=== PATIENT | female | born 1950 | race Caucasian/White ===

== ENCOUNTER 2017-05-16 11:10 | Emergency (ER) | payer MEDICARE, BC ==
--- OUTSIDE RECORDS SUMMARY | 2017-05-16 11:27 | XMS REPORT | Continuity of Care Document ---
:1950 Demographics Address [address] [place] [address] Home Phone [phone] Preferred Language Unknown Marital Status Unknown Protestant Affiliation Unknown Race Unknown Ethnic Group Unknown Author Organization [facility] [place] [address] Care Team Providers Name Role Phone Unavailable Primary Care Provider Unavailable Source Comments This disclosure is being made pursuant to the [employer] program and maynot contain all information available regarding this patient.[facility] Active Allergies and Adverse Reactions Not on File Current Medications Be aware that medications may not be up to date as of this document. Alwaysverify current medications with the patient. Not on file Active Problems Not on file Social History Tobacco Use Types Packs/Day Years Used Date Never Assessed Plan of Care Health Maintenance Due Date Last Done Comments Retired-Pertussis Vaccine Adult 01/27/1968 Retired-Tetanus Vaccine Adult 01/27/1968 Mammogram 1989 Colonoscopy 1999 Well Adult Visit 1999 Zoster Vaccine 60+ 2009 Bone Density 2014 Retired-Pneumococcal 23 Vaccine-65+ yo 2014 Retired-INFLUENZA VACCINE 07/08/2015 Results from Last 3 Months Not on file
[2017-05-16 11:45] LABS: Mean Cell Volume 98.2 fl (78-100); Mean Corpuscular Hemoglobin 31.7 pg (27-31); Mean Corpuscular Hgb Conc 32.3 g/dl (32-36); Mean Platelet Volume 9.8 fl (6.0-9.5); Neutrophil # 14.9 K/mm3 (1.3-6.0); Neutrophil % 86.1 % (42-75.0); Platelet Count 405 K/mm3 (150-450); Red Blood Count 2.27 M/mm3 (4.2-5.4); Red Cell Distribution Width 15.2 % (11.5-14.0); White Blood Count 17.3 K/mm3 (4.0-10.5)
[2017-05-16 11:56] LABS: Hemoglobin 7.2 gm/dL (12.5-16.0)
[2017-05-16 11:57] LABS: Hematocrit 22.3 % (37.0-47.0)
[2017-05-16] MEDS ORDERED: PANTOPRAZOLE SODIUM 40 MG in NORMAL SALINE 100 ML IV ONE (12:07)
[2017-05-16] MEDS ORDERED: PANTOPRAZOLE SODIUM 40 MG/100 ML PIGGYBACK IV ONE (12:10)
[2017-05-16 12:11] LABS: Anion Gap 19.9 mmol/L (6.8-13.8); BUN/Creatinine Ratio 24.2 (9.0-21.6); Bilirubin, Total 11.3 mg/dL (0.0-1.1); Ca. Corrected For Albumin 10.4 mg/dL (8.4-10.2); Calcium * 9.1 mg/dL (7.9-10.9); Carbon Dioxide 18.9 mmol/L (24-32.6); Magnesium 1.3 mg/dL (1.2-2.8); Potassium 3.8 mmol/L (3.4-4.6); Total Protein 6.1 gm/dL (6.2-8.2)
--- NOTE | 2017-05-16 12:13 | ERNOTE ---
Abdominal HPI - General Chief Complaint: Abdominal Pain Time Seen by Provider: 05/16/17 11:21 Source: patient, family - Immun/Allergies/Home Medications Immunizatons: IMMUNIZATION HX Immunizations Up to Date Yes History of Influenza Vaccine No Hx Pneumococcal Vaccination No Allergies/Adverse Reactions: Allergies acetaminophen [From Vicodin] Allergy (Verified 05/16/17 11:30) Other chest pain codeine Allergy (Verified 05/16/17 11:30) hydrocodone [From Vicodin] Allergy (Verified 05/16/17 11:30) Other chest pain Home Medications: HOME MEDICATIONS Bupropion HCl [Wellbutrin Xl] 300 mg PO DAILY 05/19/15 [Last Taken Unknown] Carvedilol [Coreg] 12.5 mg PO BID 05/19/15 [Last Taken Unknown] Levothyroxine Sodium [Synthroid] 25 mcg PO DAILY 05/19/15 [Last Taken Unknown] Risperidone 2 mg PO DAILY 05/19/15 [Last Taken Unknown] Warfarin Sodium [Coumadin] 3 mg PO SUTUWEFRSA 05/19/15 [Last Taken Unknown] Warfarin Sodium [Coumadin] 4 mg PO MO 05/19/15 [Last Taken Unknown] Simvastatin [Zocor] 40 mg PO HS 06/18/16 [Last Taken Unknown] metFORMIN HCL [Glucophage] 1,000 mg PO BIDWM 12/23/16 [Last Taken Unknown] Cholecalciferol (Vitamin D3) [Vitamin D3] 1,000 unit PO DAILY 05/16/17 [Last Taken Unknown] - History of Present Illness Narrative: Patient presents with diffuse mild abdominal pain, however the main reason that she comes in is because the increasing jaundice that she has been experiencing over the last week to 10 days as well as yellowing of the eyes. Patient has a known pancreatic mass or it is unclear exactly the nature of or whether there is any spread to the liver as well. Timing: getting worse Quality: mild, moderate Activities at Onset: none Associated Symptoms: Present: other - Black stools Prior Abdominal Problems: Present: none Prior Treatment: Present: other - patient is being seen in the Coumadin clinic however her INR has continued to rise so her Coumadin has been stopped and they have started her on vitamin K which has not brought the INR down at all Review of Systems - Review of Systems Constitutional: Present: See HPI EYE: Present: other - scleral icterus ENT: Present: no symptoms reported Respiratory: Present: no symptoms reported Cardiology: Present: no symptoms reported Gastrointestinal/Abdominal: Present: no symptoms reported Genitourinary: Present: no symptoms reported Musculoskeletal: Present: no symptoms reported Skin: Present: change in color Neurological: Present: no symptoms reported Endocrine: Present: no symptoms reported Hematologic/Lymphatic: Present: no symptoms reported Psych: Present: no symptoms reported - Patient's Past Medical History Patient History - Medical: Anemia, Cataracts, Diabetes Type 2, Depression, Hypothyroidism, Other - pancreatic mass Patient History - Cardiac/Respiratory: Cardiomyopathy, Coronary Heart Disease, CVA/Stroke, Deep Vein Thrombosis, Hypertension Patient History - Surgical Procedures: Cataracts, Cholecystectomy, Colonoscopy, D & C, Gastric Bypass, T & A, Other Patient History - Other: None - Social History Smoking Status: Former smoker Have you smoked in the past 12 months: Yes - Immunizations Immunizations Up to Date: Yes Hx Pneumococcal Vaccination: No History of Influenza Vaccine: No Physical Exam - Physical Exam General Appearance: Present: wd/wn, alert, mild distress Eye Exam: Scleral icterus: bilateral Ears, Nose, Throat: Present: normal ENT inspection, H, normal pharynx Neck: Present: normal inspection, nontender Respiratory: Present: no respiratory distress, normal breath sounds, no accessory muscle use, chest nontender, lungs clear Cardiovascular/Chest: Present: regular rate, rhythm, no murmur, normal peripheral pulses Gastrointestinal/Abdominal: Present: normal bowel sounds, nondistended, soft, no organomegaly, tenderness - mild Rectal Exam: Present: black stool - heme positive, other - Black tarry stool Back Exam: Present: normal inspection, normal range of motion Extremity Exam: Present: normal inspection, non-tender, no edema, normal range of motion Neurological Exam: Present: alert, oriented, normal mood/affect Skin Exam: Present: warm/dry, jaundice Lymphatic Exam: Present: no adenopathy ED Progress - Results and Orders Patient's Lab Results:: I have reviewed the patient's lab results. - Vital Signs Patient's Vital Signs:: I have reviewed the patient's vital signs. 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 Patient was given 40 mg of Protonix IV and 1 L of fluid and her vital signs are fairly stable. I spoke with the [facility] and patient will be transferred there to the medical ICU under the care of Dr. Amanda Boyd and given the blood loss over the last 5 days and the elevation of her liver enzymes and INR and the fact that there is likely a GI bleed patient will be transferred there by ambulance in critical condition. Departure - Departure Clinical Impression: Acute renal insufficiency, Biliary obstruction Pancreatic cancer Qualifiers: Pancreatic malignancy location: unspecified Qualified Code(s): C25.9 - Malignant neoplasm of pancreas, unspecified GI bleed Qualifiers: GI bleed type/associated pathology: unspecified gastrointestinal hemorrhage type Qualified Code(s): K92.2 - Gastrointestinal hemorrhage, unspecified Liver failure, acute Qualifiers: Hepatic coma status: without hepatic coma Qualified Code(s): K72.00 - Acute and subacute hepatic failure without coma Disposition: [facility] Condition: Critical - Critical Care Total Time (mins): 55 Critical Care: Patient will require acute and intensive intervention at [facility]. She will require blood transfusions, acute GI consult for likely biliary stent and probable he will consult. Patient was given Protonix IV for the likely GI bleed and a liter of fluid to help maintain her blood pressures being stable.
[2017-05-16] MEDS ORDERED: fentaNYL CITRATE/PF 50 MCG/ML AMPUL IV ONE (12:25)
[2017-05-16] MEDS ORDERED: NORMAL SALINE 1,000 ML IV ONE (12:25)
[2017-05-16 13:09] LABS: Urine Bilirubin 6 mg/dl (NEGATIVE); Urine Blood 250 /ul (NEGATIVE); Urine Ketone 5 mg/dL (NEGATIVE); Urine Nitrite Negative (NEGATIVE); Urine Protein >=300 mg/dL (NEGATIVE); Urine Specific Gravity 1.025 SP.GR. (1.005-1.010); Urine Urobilinogen Normal (NORMAL); Urine pH 5.5 pH (5.0-7.0)
[2017-05-16] MEDS ORDERED: fentaNYL CITRATE/PF 50 MCG/ML AMPUL ONE (13:12)
[2017-05-16 13:18] LABS: Urine Appearance Turbid; Urine Color Dark Yellow; Urine WBC 0-5 /hpf (0-5)
[2017-05-16 13:19] LABS: Urine Bacteria TRACE; Urine RBC >50 /hpf (0-5)
[2017-05-16 14:29] VITALS: BP 123/50
== END 2017-05-16 13:05 | disposition short-term general hospital (02) ==
LOC: ER 11:10
DX: N28.9 Disorder of kidney and ureter, unspecified (principal); C25.9 Malignant neoplasm of pancreas, unspecified; K92.2 Gastrointestinal hemorrhage, unspecified; K72.00 Acute and subacute hepatic failure without coma; E03.9 Hypothyroidism, unspecified; E11.9 Type 2 diabetes mellitus without complications; F32.9 Major depressive disorder, single episode, unspecified; Z72.0 Tobacco use

== ENCOUNTER 2017-08-05 12:45 | Inpatient (IN) | payer BC, MEDICARE ==
[2017-08-05] MEDS ORDERED: NORMAL SALINE 1,000 ML IV ONE ×2 (13:00→14:36)
--- NOTE | 2017-08-05 13:11 | ERNOTE ---
Medical Problem HPI - General Chief Complaint: General Assessment Time Seen by Provider: 08/05/17 12:55 Source: patient Exam Limitations: no limitations - Immun/Allergies/Home Medications Immunizations: IMMUNIZATION HX Immunizations Up to Date Yes History of Influenza Vaccine No Hx Pneumococcal Vaccination No Allergies/Adverse Reactions: Allergies acetaminophen [From Vicodin] Allergy (Verified 08/05/17 12:52) Other chest pain codeine Allergy (Verified 08/05/17 12:52) hydrocodone [From Vicodin] Allergy (Verified 08/05/17 12:52) Other chest pain Home Medications: HOME MEDICATIONS Bupropion HCl [Wellbutrin Xl] 300 mg PO DAILY 05/19/15 [Last Taken Unknown] Carvedilol [Coreg] 12.5 mg PO BID 05/19/15 [Last Taken Unknown] Levothyroxine Sodium [Synthroid] 25 mcg PO DAILY 05/19/15 [Last Taken Unknown] metFORMIN HCL [Glucophage] 1,000 mg PO BIDWM 12/23/16 [Last Taken Unknown] Cholecalciferol (Vitamin D3) [Vitamin D3] 1,000 unit PO DAILY 05/16/17 [Last Taken Unknown] Atorvastatin Calcium [Lipitor] 40 mg PO HS 08/05/17 [Last Taken Unknown] HYDROmorphone HCL [Dilaudid] 2 mg PO QID PRN 08/05/17 [Last Taken Unknown] - History of Present History Narrative: This is a patient with a known history of pancreatic cancer who does not feel hungry and called her oncologist and stated her symptoms and was subsequently sent to our emergency room for extreme weakness and fatigue. She denies any fevers chills dysuria cough congestion. She denies severe abdominal pains at this time. She states that she is receiving chemotherapy for pancreatitis. Review of Systems - Review of Systems Constitutional: Present: weakness, fatigue, malaise, weight loss EYE: Present: no symptoms reported ENT: Present: no symptoms reported Respiratory: Present: no symptoms reported Cardiology: Present: no symptoms reported Gastrointestinal/Abdominal: Present: See HPI - other than a significant history of anorexia and lack of desire to eat this patient has no other gastrointestinal symptoms at this time.. Absent: abdominal pain Genitourinary: Present: no symptoms reported Musculoskeletal: Present: no symptoms reported Skin: Present: no symptoms reported - Patient's Past Medical History Patient History - Medical: Anemia, Cataracts, Diabetes Type 2, Depression, Hypothyroidism, Other Patient History - Cardiac/Respiratory: Cardiomyopathy, Coronary Heart Disease, CVA/Stroke, Deep Vein Thrombosis, Hypertension Patient History - Surgical Procedures: Cataracts, Cholecystectomy, Colonoscopy, D & C, Gastric Bypass, T & A, Other Patient History - Other: None - Social History Living Situations: home Alcohol Use: none Drug Use: none - Immunizations Immunizations Up to Date: Yes Hx Pneumococcal Vaccination: No History of Influenza Vaccine: No Physical Exam - Physical Exam General Appearance: Present: other - this is a very pale-appearing cachectic weak appearing tired female who appears malnourished Head Exam: Present: normal inspection Eye Exam: Normal inspection: bilateral, PERRL: bilateral, EOMI: bilateral Ears, Nose, Throat: Present: normal ENT inspection Neck: Present: normal inspection Respiratory: Present: no respiratory distress, normal breath sounds, no accessory muscle use - port is noted in the right upper anterior chest wall region site does not appear infected., chest nontender, lungs clear Cardiovascular/Chest: Present: regular rate, rhythm, no murmur, normal peripheral pulses Gastrointestinal/Abdominal: Present: normal bowel sounds, nontender, nondistended Back Exam: Present: normal inspection, no vertebral tenderness Extremity Exam: Present: normal inspection, normal range of motion Neurological Exam: Present: alert, oriented, normal mood/affect ED Progress - Results and Orders Patient's Lab Results:: I have reviewed the patient's lab results. - Vital Signs Patient's Vital Signs:: I have reviewed the patient's vital signs. Vital Signs: Vital Signs 08/05/17 12:48 Temperature 36.7 C Pulse Rate 122 H Respiratory 14 Rate Blood Pressure 83/44 O2 Sat by Pulse 98 Oximetry - Progress/Reassessment Chief Complaint: General Assessment Plan - Plan Plan: Patient is in fact very weak and cachectic. After IV fluids and replacement of her potassium her potassium is still low at 2.5. Also her urine reveals that she has a urinary tract infection. At this time Dr. Jimenez was consulted in regards to admitting this patient for weakness and hypokalemia and UTI. Departure Clinical Impression: Hypokalemia, Weakness - Departure Disposition: [facility] Condition: Serious Referrals: Phoebe Holly MD [Primary Care Provider] -
[2017-08-05 13:13] LABS: Hematocrit 27.7 % (37.0-47.0); Hemoglobin 9.7 gm/dL (12.5-16.0); Mean Cell Volume 86.3 fl (78-100); Mean Corpuscular Hemoglobin 30.2 pg (27-31); Mean Platelet Volume 9.9 fl (6.0-9.5); Platelet Count 109 K/mm3 (150-450); Red Blood Count 3.21 M/mm3 (4.2-5.4); Red Cell Distribution Width 15.2 % (11.5-14.0); White Blood Count 4.1 K/mm3 (4.0-10.5)
[2017-08-05 13:18] LABS: Total Cells Counted 100
[2017-08-05 13:32] LABS: Albumin * 1.7 gm/dl (3.4-5.0); BUN/Creatinine Ratio 10.3 (9.0-21.6); Bilirubin, Total 0.4 mg/dL (0.0-1.1); Ca. Corrected For Albumin 9.5 mg/dL (8.4-10.2); Carbon Dioxide 23.3 mmol/L (24-32.6); Total Protein 4.9 gm/dL (6.2-8.2)
[2017-08-05 13:39] LABS: Potassium 2.3 mmol/L (3.4-4.6)
[2017-08-05 13:40] LABS: Band 5 % (0-2.0); Lymphocyte 30 % (20-51); Monocyte 7 % (0-9); Neutrophil 58 % (42-75); Neutrophil # 2.4 K/mm3 (1.3-6.0); Platelet Estimate Normal (NORMAL); RBC Morphology D (NORMAL)
[2017-08-05] MEDS ORDERED: POTASSIUM CHLORIDE 100 ML IV ONE (13:44)
[2017-08-05] MEDS ORDERED: POTASSIUM CHLORIDE 20 MEQ TABLET.SA PO ONE (13:44)
[2017-08-05] MEDS ORDERED: POTASSIUM CHLORIDE 20 MEQ TABLET.SA ONE (13:57)
[2017-08-05] MEDS ORDERED: ONDANSETRON HCL/PF 2 MG/ML VIAL IV ONE (14:37)
[2017-08-05 14:40] LABS: Urine Bilirubin Negative (NEGATIVE); Urine Blood 250 /ul (NEGATIVE); Urine Ketone Negative (NEGATIVE); Urine Nitrite Negative (NEGATIVE); Urine Protein 15 mg/dL (NEGATIVE); Urine Specific Gravity <=1.005 SP.GR. (1.005-1.010); Urine Urobilinogen Normal (NORMAL); Urine pH 6.5 pH (5.0-7.0)
[2017-08-05] MEDS ORDERED: HYDROmorphone HCL 1 MG/ML DISP.SYRIN IV ONE (14:43)
[2017-08-05] MEDS ORDERED: HYDROmorphone HCL 2 MG/ML VIAL ONE (14:46)
[2017-08-05 14:48] LABS: Urine Appearance Clear; Urine Bacteria 1+; Urine Color Yellow
[2017-08-05] MEDS ORDERED: ONDANSETRON HCL/PF 2 MG/ML VIAL ONE (14:52)
[2017-08-05] MEDS ORDERED: SULFAMETHOXAZOLE/TRIMETHOPRIM 1 TAB TABLET PO ONE (15:22)
[2017-08-05] MEDS ORDERED: SULFAMETHOXAZOLE/TRIMETHOPRIM 1 TAB TABLET ONE (15:23)
--- NOTE | 2017-08-05 17:32 | HP ---
Chief Complaint - Chief Complaint Date of Service: 08/05/17 Time of Service: 17:21 Chief Complaint: generalized weakness/decreased appetite History of Present Illness: Shayna Curtis, is a 67-year-old white female, patient of Dr. Holly, with previous medical history of pancreatic adenocarcinoma on chemotherapy, coronary artery disease, hypertension, hypothyroidism who was admitted on 08/05/2017 because of generalized weakness and decreased appetite. The patient was diagnosed with adenocarcinoma of the pancreas, nonresectable, in May 2017. Since then she has been on chemotherapy 3 weeks in a row and one week off. Her last one was one week and a half ago . She has been getting weaker and her legs could not bear her weight to make her walk. Her appetite is way down and so she went to our emergency room. In the emergency room she was found to be hypokalemic with a potassium of 2.3 with low total protein and albumin. She was then admitted for IV fluids and further correction of her potassium as it only got up to 2.5. - Patient's Past Medical History Patient History - Medical: Anemia, Cataracts, Chronic Pain, Diabetes Type 2, Depression, Hypothyroidism, Other Patient History - Cardiac/Respiratory: Cardiomyopathy, Coronary Heart Disease, CVA/Stroke, Deep Vein Thrombosis, Hypertension Patient History - Surgical Procedures: Cataracts, Cholecystectomy, Colonoscopy, D & C, Gastric Bypass, T & A, Other Patient History - Other: None - Social History Living Situations: alone Abuse History: No History of abuse Psych History: Hx of Depression Smoking Status: Former smoker Have you smoked in the past 12 months: Yes Do you dip or chew tobacco: No Smoking Start Date: 04/07/17 Patient requests Smoking Cessation Consult: No Initiate information on Smoking Cessation: No Alcohol Use: none Drug Use: none - Immunizations Immunizations Up to Date: Yes Hx Pneumococcal Vaccination: No History of Influenza Vaccine: No Review Of Systems (GEN) - Review of Systems Generalized/Overall Review: Present: Weakness, Weight loss. Absent: Chills, Fever EENTM: Present: No Symptoms Reported Respiratory: Absent: Cough, Shortness of Breath Cardiac: Absent: Chest Pain, Palpitations Abdominal: Present: Abdominal Pain. Absent: Nausea, Vomiting Genitourinary: Absent: Urgency, Frequency Musculoskeletal: Present: Joint Pain Immunizations: IMMUNIZATION HX Immunizations Up to Date Yes History of Influenza Vaccine No Hx Pneumococcal Vaccination No Allergies/Adverse Reactions: Allergies Allergy/AdvReac Type Severity Reaction Status Date / Time acetaminophen [From Vicodin] Allergy Other Verified 08/05/17 12:52 codeine Allergy Verified 08/05/17 12:52 hydrocodone [From Vicodin] Allergy Other Verified 08/05/17 12:52 Home Medications: HOME MEDICATIONS HYDROmorphone HCL [Dilaudid] 2 mg PO QID PRN 08/05/17 [Last Taken Unknown] Exam - Exam Vital Signs: Vital Signs - Last Taken Temp 36.8 C 08/05/17 16:45 Pulse 107 H 08/05/17 16:45 Resp 20 08/05/17 16:45 BP 104/62 08/05/17 16:45 Pulse Ox 98 08/05/17 16:45 Constitutional: Present: Alert, Oriented x3, Cooperative, Thin and frail ENT Exam: Present: hearing grossly normal Eye Exam: bilateral eye: normal inspection, PERRL, EOMI Neck: Present: supple Breasts: Present: Exam deferred Respiratory: Present: decreased breath sounds, No rales, No wheezing Cardiovascular/Chest: Present: regular rate, rhythm, no JVD, no murmur Abdomen: Present: Normal bowel sounds, soft, tender - slightly, distended - slightly Extremity: Present: no pedal edema, no calf tenderness Diagnostic Studies: Laboratory Results WBC 4.1 K/mm3 (4.0-10.5) 08/05/17 09:29 RBC 3.21 M/mm3 (4.2-5.4) L 08/05/17 09:29 Hgb 9.7 gm/dL (12.5-16.0) L 08/05/17 09:29 Hct 27.7 % (37.0-47.0) L 08/05/17 09:29 MCV 86.3 fl (78-100) 08/05/17 09:29 MCH 30.2 pg (27-31) 08/05/17 09:29 MCHC 35.0 g/dl (32-36) 08/05/17 09:29 RDW 15.2 % (11.5-14.0) H 08/05/17 09:29 Plt Count 109 K/mm3 (150-450) L 08/05/17 09:29 MPV 9.9 fl (6.0-9.5) H 08/05/17 09:29 Neutrophils % (Manual) 58 % (42-75) 08/05/17 09:29 Band Neuts % (Manual) 5 % (0-2.0) H 08/05/17 09:29 Lymphocytes % (Manual) 30 % (20-51) 08/05/17 09:29 Monocytes % (Manual) 7 % (0-9) 08/05/17 09:29 Neutrophils # (Manual) 2.4 K/mm3 (1.3-6.0) 08/05/17 09:29 Lymphocytes # (Manual) 1.2 k/mm3 (1.5-3.5) L 08/05/17 09:29 Monocytes # (Manual) 0.3 k/mm3 (0.0-1.0) 08/05/17 09: Nucleated RBCs 5.0 % (0-1) H 08/05/17 09:29 Platelet Estimate Normal (NORMAL) 08/05/17 09:29 RBC Morphology D (NORMAL) 08/05/17 09:29 Sodium 134 mmol/L (132-142) 08/05/17 09:29 Plasma Sodium 135 mmol/L (130-142) 08/05/17 09:29 Potassium 2.5 mmol/L (3.4-4.6) L 08/05/17 15:30 Chloride 98 mmol/L (97-106) 08/05/17 09: Carbon Dioxide 23.3 mmol/L (24-32.6) L 08/05/17 09:29 Anion Gap 15.0 mmol/L (6.8-13.8) H 08/05/17 09:29 BUN 9 mg/dL (3-23) 08/05/17 09:29 Creatinine 0.87 mg/dL (0.4-1.4) 08/05/17 09:29 Est GFR (Non-Af Amer) 69 mL/min (60-130) 08/05/17 09: BUN/Creatinine Ratio 10.3 (9.0-21.6) 08/05/17 09:29 Random Glucose 152 mg/dL (70-110) H 08/05/17 09:29 Calcium 8.0 mg/dL (7.9-10.9) 08/05/17 09:29 Calcium Adj for Albumin 9.5 mg/dL (8.4-10.2) 08/05/17 09: Total Bilirubin 0.4 mg/dL (0.0-1.1) 08/05/17 09:29 AST 42 U/L (0-48) 08/05/17 09:29 ALT 37 U/L (19-67) 08/05/17 09:29 Alkaline Phosphatase 218 U/L (50-170) H 08/05/17 09:29 Total Protein 4.9 gm/dL (6.2-8.2) L 08/05/17 09:29 Albumin 1.7 gm/dl (3.4-5.0) L 08/05/17 09:29 Urine Color Yellow 08/05/17 14:31 Urine Appearance Clear 08/05/17 14:31 Urine pH 6.5 pH (5.0-7.0) 08/05/17 14:31 Ur Specific [place] <=1.005 SP.GR. (1.005-1.010) 08/05/17 14:31 Urine Protein 15 mg/dL (NEGATIVE) H 08/05/17 14:31 Urine Glucose (UA) Negative mg/dL (NEGATIVE) 08/05/17 14:31 Urine Ketones Negative mg/dL (NEGATIVE) 08/05/17 14:31 Urine Blood 250 /ul (NEGATIVE) H 08/05/17 14:31 Urine Nitrate Negative (NEGATIVE) 08/05/17 14:31 Urine Bilirubin Negative mg/dl (NEGATIVE) 08/05/17 14:31 Prot Sulfosalicylic Acd Negative mg/dL (0) 08/05/17 14:31 Urine Urobilinogen Normal EU/dl (NORMAL) 08/05/17 14:31 Ur Leukocyte Esterase 75 /ul (NEGATIVE) H 08/05/17 14:31 Urine RBC 10-25 /hpf (0-5) H 08/05/17 14:31 Urine WBC 5-10 /hpf (0-5) H 08/05/17 14:31 Ur Epithelial Cells 0-5 /hpf (0-5) 08/05/17 14:31 Urine Bacteria 1+ (NONE) H 08/05/17 14:31 Urine Culture Comments Culture to follow 08/05/17 14:31 Assessment/Plan - Assessment/Plan (1) Hypokalemia Assessment: will replenish. Problem: Acute (2) Weakness Assessment: will start remeron for its beneficial effect of increasing her appetite and for its antidepressant property. she does not want to be on megace. will refer to PT. Problem: Acute (3) UTI (urinary tract infection) Assessment: will start her on IV rocephin. await C & S. Problem: Acute (4) Pancreatic cancer Problem: Acute (5) Coronary artery disease Problem: Chronic (6) Hypertension Problem: Acute (7) Hypothyroidism Problem: Acute (8) Diabetes mellitus type 2 in nonobese Problem: Acute
[2017-08-05] MEDS ORDERED: POTASSIUM CHLORIDE 10 MEQ TABLET.SA PO ONE (17:34)
[2017-08-05] MEDS ORDERED: ZOLPIDEM TARTRATE 5 MG TABLET PO PRN (17:43)
[2017-08-05] MEDS: POTASSIUM CHLORIDE 20 MEQ in NORMAL SALINE 1,000 ML IV SCH (18:00)
[2017-08-05] MEDS: POTASSIUM CHLORIDE 100 ML IV SCH ×2 (18:02→19:11)
[2017-08-05] MEDS: HYDROmorphone HCL 2 MG TABLET PO PRN (18:03)
[2017-08-05] MEDS ORDERED: MIRTAZAPINE 15 MG TABLET PO SCH (21:00)
[2017-08-06 05:36] LABS: Hematocrit 25.8 % (37.0-47.0); Hemoglobin 8.9 gm/dL (12.5-16.0); Mean Cell Volume 87.8 fl (78-100); Mean Corpuscular Hemoglobin 30.3 pg (27-31); Mean Corpuscular Hgb Conc 34.5 g/dl (32-36); Mean Platelet Volume 9.6 fl (6.0-9.5); Platelet Count 105 K/mm3 (150-450); Red Blood Count 2.94 M/mm3 (4.2-5.4); Red Cell Distribution Width 15.8 % (11.5-14.0); White Blood Count 6.1 K/mm3 (4.0-10.5)
[2017-08-06 05:38] LABS: Total Cells Counted 100
[2017-08-06 05:46] LABS: Atypical (Reactive) Lymph 1 % (0-2); Band 1 % (0-2.0); Immature Granulocyte 3 (0-1); Lymphocyte 33 % (20-51); Monocyte 6 % (0-9); Neutrophil 56 % (42-75); Neutrophil # 3.4 K/mm3 (1.3-6.0); Platelet Estimate Decreased (NORMAL)
[2017-08-06 05:47] LABS: RBC Morphology Normal (NORMAL)
[2017-08-06 05:51] LABS: Albumin * 1.6 gm/dl (3.4-5.0); Anion Gap 12.6 mmol/L (6.8-13.8); BUN/Creatinine Ratio 12.7 (9.0-21.6); Bilirubin, Total 0.3 mg/dL (0.0-1.1); Ca. Corrected For Albumin 9.1 mg/dL (8.4-10.2); Calcium * 7.5 mg/dL (7.9-10.9); Carbon Dioxide 21.4 mmol/L (24-32.6); Total Protein 4.5 gm/dL (6.2-8.2)
[2017-08-06] MEDS: HYDROmorphone HCL 2 MG TABLET PO PRN ×2 (06:37→15:43)
[2017-08-06] MEDS: POTASSIUM CHLORIDE 20 MEQ in NORMAL SALINE 1,000 ML IV SCH ×3 (06:39→15:54)
[2017-08-06] MEDS ORDERED: POTASSIUM CHLORIDE 20 MEQ TABLET.SA PO ONE (07:10)
--- NOTE | 2017-08-06 07:34 | PN ---
Subjective - Date and Time Seen Date: 08/06/17 Time: 07:30 Subjective Narrative: patient seen today in bed AOX 3 no acute distress, pt stated she was still feeling weak. She anticipating discharge home later today when potassium improves. Objective - Review of Systems Generalized/Overall Review: Reports: Weakness EENTM: Reports: No Symptoms Reported Respiratory: Reports: No Symptoms Reported Cardiac: Reports: No Symptoms Reported Abdominal: Reports: No Symptoms Reported Genitourinary Symptoms: Reports: No Symptoms Reported Musculoskeletal Complaints: Reports: No Symptoms Reported Neurological: Reports: Weakness Skin: Reports: No Symptoms Reported Endocrine: Reports: No Symptoms Reported - Vitals Vitals: Last Vital Signs Temp 36.5 C 08/06/17 00:00 Pulse 108 H 08/06/17 05:00 Resp 18 08/06/17 00:00 BP 115/46 08/06/17 00:00 Pulse Ox 95 08/06/17 00:00 - Abnormal Lab Findings Abnormal Lab Findings: Abnormal Lab Results 08/06/17 08/06/17 Range/Units 05:32 05:32 RBC 2.94 L (4.2-5.4) M/mm3 Hgb 8.9 L (12.5-16.0) gm/dL Hct 25.8 L (37.0-47.0) % RDW 15.8 H (11.5-14.0) % Plt Count 105 L (150-450) K/mm3 MPV 9.6 H (6.0-9.5) fl Immature Granulocytes 3 H (0-1) Nucleated RBCs 6.0 H (0-1) % Platelet Estimate Decreased L (NORMAL) Potassium 3.0 L (3.4-4.6) mmol/L Carbon Dioxide 21.4 L (24-32.6) mmol/L Calcium 7.5 L (7.9-10.9) mg/dL Alkaline Phosphatase 209 H (50-170) U/L Total Protein 4.5 L (6.2-8.2) gm/dL Albumin 1.6 L (3.4-5.0) gm/dl - Exam Constitutional: Present: Alert, Oriented x3, Cooperative ENT Exam: Present: hearing grossly normal Neck: Present: full range of motion Breasts: Present: Exam deferred Respiratory: Present: chest non-tender, lungs clear, normal breath sounds, no respiratory distress Cardiovascular/Chest: Present: normal peripheral pulses, regular rate, rhythm, no chest tenderness, no edema Abdomen: Present: Normal bowel sounds, soft, nontender, distended - slightly /Rectal: Present: Exam deferred Extremity: Present: normal range of motion, non-tender, normal inspection, no pedal edema Skin Exam: Present: other - pale Neurologic: Present: oriented x 3 Appearance: Present: appropriate appearance, appropriate insight Eye contact: Present: cooperative, good eye contact Thoughts: Present: normal thought pattern Assessment/Plan Plan Narrative: Hypokalemia-gradually improving Additional dose K-dur 40meq given today Continue with IVF Monitor Potassium level at noon Weakness Remeron added to treatment regimen UTI Seen on UA Continue with rocephin urine culture pending Code status: DNR VTE ppx: Ambulate and SCD GI ppx:Pepcid Time 20 minutes - Problems/Diagnosis (1) Hypokalemia Problem: Acute (2) Diabetes mellitus type 2 in nonobese Problem: Chronic (3) Weakness Problem: Acute (4) Pancreatic cancer Problem: Chronic (5) Hypothyroidism Problem: Acute (6) UTI (urinary tract infection) Problem: Acute (7) Coronary artery disease Problem: Chronic
[2017-08-06] MEDS: FAMOTIDINE 20 MG TABLET PO SCH (07:59)
[2017-08-06] MEDS ORDERED: POTASSIUM CHLORIDE 10 MEQ TABLET.SA PO SCH (09:00)
[2017-08-06] MEDS: ENOXAPARIN SODIUM 40 MG/0.4 ML SYRG SC SCH (10:18)
[2017-08-06] MEDS: POTASSIUM CHLORIDE 40 MEQ/15 ML BTL PO SCH ×3 (13:25→17:50)
[2017-08-07] MEDS: HYDROmorphone HCL 2 MG TABLET PO PRN ×4 (01:07→20:28)
[2017-08-07] MEDS: POTASSIUM CHLORIDE 20 MEQ in NORMAL SALINE 1,000 ML IV SCH ×2 (03:02→10:36)
[2017-08-07] MEDS: FAMOTIDINE 20 MG TABLET PO SCH (09:04)
[2017-08-07] MEDS: POTASSIUM CHLORIDE 40 MEQ/15 ML BTL PO SCH (09:05)
[2017-08-07] MEDS: ENOXAPARIN SODIUM 40 MG/0.4 ML SYRG SC SCH (09:13)
[2017-08-07] MEDS ORDERED: ONDANSETRON HCL/PF 2 MG/ML VIAL IV PRN (09:38)
--- NOTE | 2017-08-07 09:38 | PN ---
Subjective - Date and Time Seen Date: 08/07/17 Time: 09:34 Subjective Narrative: She says her appetitie is back. She is nauseous after taking her Potassium. Possible discharge in a.m, if K holds. no episode of diarrhea. Objective - Review of Systems Generalized/Overall Review: Reports: Weakness. Denies: Chills, Fever EENTM: Reports: No Symptoms Reported Respiratory: Denies: Cough, Shortness of Breath Cardiac: Denies: Chest Pain, Edema, Palpitations Abdominal: Reports: Nausea. Denies: Vomiting Genitourinary Symptoms: Denies: Urgency, Frequency Musculoskeletal Complaints: Reports: Joint Pain - Vitals Vitals: Last Vital Signs Temp 36.6 C 08/07/17 06:00 Pulse 101 H 08/07/17 06:00 Resp 18 08/07/17 06:00 BP 109/52 08/07/17 06:00 Pulse Ox 99 08/07/17 06:00 - Exam Constitutional: Present: Alert, Oriented x3, Cooperative ENT Exam: Present: hearing grossly normal Neck: Present: supple Breasts: Present: Exam deferred Respiratory: Present: normal breath sounds, No rales, No wheezing Cardiovascular/Chest: Present: regular rate, rhythm, no JVD, no murmur Abdomen: Present: Normal bowel sounds, soft, nontender, nondistended Extremity: Present: no pedal edema, no calf tenderness Assessment/Plan - Problems/Diagnosis (1) Hypokalemia Problem: Acute Narrative: franca repeat her BMP today. (2) Weakness Problem: Acute Narrative: PT consulted. appetitie increased. (3) UTI (urinary tract infection) Problem: Acute Narrative: with Klebsiella Oxytoca/Pneumoniae. (4) Pancreatic cancer Problem: Chronic (5) Coronary artery disease Problem: Chronic (6) Hypertension Problem: Acute (7) Hypothyroidism Problem: Acute (8) Diabetes mellitus type 2 in nonobese Problem: Chronic (9) Nausea Problem: Acute Narrative: russell Hayes
[2017-08-07 09:49] LABS: Anion Gap 14.9 mmol/L (6.8-13.8); BUN/Creatinine Ratio 11.5 (9.0-21.6); Calcium * 7.6 mg/dL (7.9-10.9); Carbon Dioxide 20.1 mmol/L (24-32.6); Estimated Creat Clear 63.4
[2017-08-07] MEDS: NORMAL SALINE 1,000 ML IV PRN ×2 (17:23→22:52)
[2017-08-08] MEDS: HYDROmorphone HCL 2 MG TABLET PO PRN ×2 (04:06→11:03)
[2017-08-08 08:09] LABS: Anion Gap 10.9 mmol/L (6.8-13.8); BUN/Creatinine Ratio 10.7 (9.0-21.6); Calcium * 7.2 mg/dL (7.9-10.9); Carbon Dioxide 21.4 mmol/L (24-32.6); Estimated Creat Clear 69.1; Potassium 4.3 mmol/L (3.4-4.6)
[2017-08-08] MEDS: FAMOTIDINE 20 MG TABLET PO SCH (08:09)
--- NOTE | 2017-08-08 08:57 | DS ---
(1) Hypokalemia Problem: Resolved (2) Weakness Problem: Resolved (3) UTI (urinary tract infection) Diagnosis(s): Klebsiella Oxytoca/pneumoniae. Problem: Acute (4) Pancreatic cancer Problem: Chronic (5) Coronary artery disease Problem: Chronic (6) Hypertension Problem: Chronic (7) Hypothyroidism Problem: Chronic (8) Diabetes mellitus type 2 in nonobese Problem: Chronic (9) Nausea Problem: Resolved Description of Stay: Shayna Curtis, is a 67-year-old white female, patient of Dr. Holly, with previous medical history of pancreatic adenocarcinoma on chemotherapy, coronary artery disease, hypertension, hypothyroidism who was admitted on 08/05/2017 because of generalized weakness and decreased appetite. The patient was diagnosed with adenocarcinoma of the pancreas, nonresectable, in May 2017. Since then she had been on chemotherapy 3 weeks in a row and one week off. Her last one was one week and a half ago . She had been getting weaker and her legs could not bear her weight to make her walk. Her appetite was way down and so she went to our emergency room. In the emergency room she was found to be hypokalemic with a potassium of 2.3 with low total protein and albumin. She was then admitted for IV fluids and further correction of her potassium as it only got up to 2.5. We continued with IVF and K replenishment. Her K was low likely due to diarrhea. She did have UTI and IV Rocephin was started. It grew Klebsiella . She was referred to PT. She improved clinically and is stable to go home today with Bactrim DS x 3 days. . Her is 4.3 and has no more diarrhea. Procedures Performed: none Discharge Disposition: Home self care Disposition: Home self-care Condition: Fair Discharge Activity: Activity as tolerated Discharge Diet: General/regular food, Consistent carbs Referrals: Phoebe Holly MD [Primary Care Provider] - Problem Oriented Discharge Instructions to Patient/Family: Hypokalemia, Urinary Tract Infection, Adult, [id number] Additional Patient Instructions (free text): [facility] at discharge, new. Please call report and fax orders and face to face at discharge. TCM appointment at discharge,if applicable. Thank you! Devorah @ ext: [phone]. Follow up with PCP in 2 weeks with PCP. Follow up with Dr. Holly 08/22 at 10:30 Prescriptions (Any new or edited meds): Sulfamethoxazole/Trimethoprim [Bactrim Ds] 1 tab PO BID #6 tab Complete Home Medications List: Complete Home Medication List: HYDROmorphone HCL [Dilaudid] 2 mg PO QID PRN 08/05/17 Sulfamethoxazole/Trimethoprim [Bactrim Ds] 1 tab PO BID #6 tab 08/08/17
[2017-08-08] MEDS: ENOXAPARIN SODIUM 40 MG/0.4 ML SYRG SC SCH (08:59)
[2017-08-08] MEDS: NORMAL SALINE 1,000 ML IV PRN (08:59)
[2017-08-08 11:06] VITALS: BP 100/56
== END 2017-08-08 12:10 | disposition home health service (06) | DRG 690 ==
LOC: ER 12:45 → MS 16:00 → OBSVTOIN 08-06 09:34
PROVIDERS: ADMIT Internal Medicine; ATTEND Internal Medicine
DX: N39.0 Urinary tract infection, site not specified (principal); C25.9 Malignant neoplasm of pancreas, unspecified; B96.1 Klebsiella pneumoniae [K. pneumoniae] as the cause of diseases classified elsewhere; E87.6 Hypokalemia; I10 Essential (primary) hypertension; I25.10 Atherosclerotic heart disease of native coronary artery without angina pectoris; E11.9 Type 2 diabetes mellitus without complications; E03.9 Hypothyroidism, unspecified; Z86.73 Personal history of transient ischemic attack (TIA), and cerebral infarction without residual deficits; Z79.899 Other long term (current) drug therapy
CPT/HCPCS: 36415; 80048; 80053; 81001; 84132; 85007; 85025; 87077; 87086; 87186; 93005; 96374; 96375; 97162; 97530; 99284; G0378; G8978; G8979; G8980; J2405

== ENCOUNTER 2017-08-14 19:04 | Inpatient (IN) | payer MEDICARE ==
[2017-08-14] MEDS ORDERED: ONDANSETRON HCL/PF 2 MG/ML VIAL IV ONE (19:48)
[2017-08-14] MEDS ORDERED: HYDROmorphone HCL 1 MG/ML DISP.SYRIN IV ONE ×3 (19:48→21:31)
[2017-08-14 20:05] LABS: Hematocrit 25.5 % (37.0-47.0); Hemoglobin 8.5 gm/dL (12.5-16.0); Mean Cell Volume 93.4 fl (78-100); Mean Corpuscular Hemoglobin 31.1 pg (27-31); Mean Corpuscular Hgb Conc 33.3 g/dl (32-36); Mean Platelet Volume 10.6 fl (6.0-9.5); Neutrophil # 8.1 K/mm3 (1.3-6.0); Neutrophil % 93.6 % (42-75.0); Platelet Count 95 K/mm3 (150-450); Red Blood Count 2.73 M/mm3 (4.2-5.4); Red Cell Distribution Width 22.2 % (11.5-14.0); White Blood Count 8.6 K/mm3 (4.0-10.5)
[2017-08-14] MEDS ORDERED: ONDANSETRON HCL/PF 2 MG/ML VIAL ONE (20:06)
[2017-08-14] MEDS ORDERED: HYDROmorphone HCL 1 MG/ML DISP.SYRIN ONE ×3 (20:06→21:34)
[2017-08-14 20:18] LABS: Albumin * 1.2 gm/dl (3.4-5.0); Anion Gap 20.6 mmol/L (6.8-13.8); BUN/Creatinine Ratio 9.9 (9.0-21.6); Bilirubin, Total 1.3 mg/dL (0.0-1.1); Ca. Corrected For Albumin 8.9 mg/dL (8.4-10.2); Carbon Dioxide 19.7 mmol/L (24-32.6); Potassium 4.3 mmol/L (3.4-4.6); Total Protein 4.6 gm/dL (6.2-8.2)
--- NOTE | 2017-08-14 20:46 | ERNOTE ---
Abdominal HPI - Narrative Date of Service: 08/14/17 - General Chief Complaint: Abdominal Pain Time Seen by Provider: 08/14/17 19:40 Source: patient, family, RN notes reviewed, past records Exam Limitations: no limitations - Immun/Allergies/Home Medications Immunizatons: IMMUNIZATION HX Immunizations Up to Date Yes History of Influenza Vaccine No Hx Pneumococcal Vaccination No Allergies/Adverse Reactions: Allergies acetaminophen [From Vicodin] Allergy (Verified 08/05/17 12:52) Other chest pain codeine Allergy (Verified 08/05/17 12:52) hydrocodone [From Vicodin] Allergy (Verified 08/05/17 12:52) Other chest pain Home Medications: HOME MEDICATIONS HYDROmorphone HCL [Dilaudid] 2 mg PO QID PRN 08/05/17 [Last Taken Unknown] Sulfamethoxazole/Trimethoprim [Bactrim Ds] 1 tab PO BID #6 tab 08/08/17 [Last Taken Unknown] - History of Present Illness Narrative: 67 year old female brought to the ED by her family for uncontrolled pain. She has pancreatic cancer and takes Dilaudid at home. She is prescribed 2mg every 6 hours as needed, but her family reports she usually only takes it 2 or 3 times a day. She was hospitalized from 08/06/17 to 08/08/17 for hypokalemia and weakness. She was discharged on Bactrim for a UTI. She was then evaluated in the ED at [facility] on the same day. No changes were made in her plan of care. She has been getting chemotherapy and her CT on 08/11 showed no progression of her cancer but mildly worsening ascites. Prior Abdominal Problems: Present: similar symptoms Prior Treatment: Present: recently hospitalized. Absent: currently on antibiotics Review of Systems - Review of Systems Constitutional: Present: recent illness, fatigue, malaise. Absent: fever EYE: Present: no symptoms reported ENT: Present: no symptoms reported Respiratory: Absent: shortness of breath, cough Cardiology: Present: no symptoms reported Gastrointestinal/Abdominal: Present: nausea, abdominal pain. Absent: vomiting, diarrhea, constipation Genitourinary: Absent: frequency, dysuria Musculoskeletal: Present: no symptoms reported Skin: Present: no symptoms reported Neurological: Absent: weakness, numbness Endocrine: Present: no symptoms reported Hematologic/Lymphatic: Present: no symptoms reported Psych: Present: no symptoms reported - Patient's Past Medical History Patient History - Medical: Anemia, Cataracts, Chronic Pain, Diabetes Type 2, Depression, Hypothyroidism, Other Patient History - Cardiac/Respiratory: Cardiomyopathy, Coronary Heart Disease, CVA/Stroke, Deep Vein Thrombosis, Hypertension Patient History - Cancer: Pancreatic Patient History - Surgical Procedures: Cataracts, Cholecystectomy, Colonoscopy, D & C, Gastric Bypass, T & A, Other - ERCP, Duodenal stent Patient History - Other: None - Social History Living Situations: home Abuse History: No History of abuse Psych History: Hx of Depression Smoking Status: Former smoker Have you smoked in the past 12 months: No Do you dip or chew tobacco: No - Immunizations Immunizations Up to Date: Yes Hx Pneumococcal Vaccination: No History of Influenza Vaccine: No Physical Exam - Physical Exam General Appearance: Present: wd/wn, alert, mild distress, other - Appears uncomfortable Neck: Present: normal inspection, nontender, supple Respiratory: Present: no respiratory distress, lungs clear, accessory muscle use - mildly tachypneic, decreased breath sounds - Diminished in bilateral bases Cardiovascular/Chest: Present: no murmur, normal peripheral pulses, tachycardia Gastrointestinal/Abdominal: Present: normal bowel sounds, soft, tenderness - lower abdomen and suprapubic region, distended Extremity Exam: Present: normal inspection, non-tender, normal range of motion, pedal edema - 3+ pitting to mid lee bilaterally Neurological Exam: Present: alert, oriented, other - Flat affect, chronic tremor. Absent: normal mood/affect Skin Exam: Present: warm/dry, pallor ED Progress - Results and Orders Patient's Lab Results:: I have reviewed the patient's lab results. - Vital Signs Patient's Vital Signs:: I have reviewed the patient's vital signs. Vital Signs: Vital Signs 08/14/17 08/14/17 19:14 19:26 Temperature 36.8 C 36.8 C Pulse Rate 134 H Respiratory 14 14 Rate Blood Pressure 92/68 92/68 O2 Sat by Pulse 94 Oximetry - Progress/Reassessment Chief Complaint: Abdominal Pain Progress:: Improved Progress Note-Subjective: 08/14/17 20:53 Patient rates pain at a 7 after Dilaudid 1 mg IVP. Additional 1 mg dose ordered. 08/14/17 22:10 No improvement after 2nd dose of Dilaudid. Patient remains tachycardic in 120's to 140's. Dilaudid repeated. Patient was taken to xray for chest and abdominal films. She became syncopal, but recovered after returning to department with an SpO2 of 97 to 100%. Continues to be tachycardic. Reports that pain is improving. Care turned over to Dr. Macias. - Transfer of Care Physician Sign Out: Елена Whitlock Receiving Physician: Evelyn Macias Pending Results: Labs, X-ray results Expected Disposition: Transfer Departure Clinical Impression: Tachycardia Pancreatic cancer Qualifiers: Pancreatic malignancy location: unspecified Qualified Code(s): C25.9 - Malignant neoplasm of pancreas, unspecified Abdominal pain Qualifiers: Abdominal location: lower abdomen, unspecified Qualified Code(s): R10.30 - Lower abdominal pain, unspecified - Departure Disposition: [facility] Condition: Fair Referrals: Phoebe Holly MD [Primary Care Provider] -
[2017-08-14 21:07] LABS: Prothrombin Time (Patient) 15.8 Seconds (9.4-11.4)
[2017-08-14 21:09] LABS: INR 1.52 INR (0.90-1.10)
[2017-08-14 21:15] LABS: Urine Appearance Clear; Urine Color Amber
[2017-08-14 21:16] LABS: Urine Bilirubin 3 mg/dl (NEGATIVE); Urine Blood 250 /ul (NEGATIVE); Urine Ketone Negative (NEGATIVE); Urine Nitrite Negative (NEGATIVE); Urine Protein 30 mg/dL (NEGATIVE); Urine Specific Gravity 1.025 SP.GR. (1.005-1.010); Urine Urobilinogen Normal (NORMAL)
[2017-08-14 21:19] LABS: Urine RBC >50 /hpf (0-5); Urine WBC 0-5 /hpf (0-5)
[2017-08-14 21:20] LABS: Urine Bacteria None Seen
--- NOTE | 2017-08-14 22:01 | ERNOTE ---
Abdominal HPI - General Chief Complaint: Abdominal Pain Time Seen by Provider: 08/14/17 19:40 Source: patient, family - Immun/Allergies/Home Medications Immunizatons: IMMUNIZATION HX Immunizations Up to Date Yes History of Influenza Vaccine No Hx Pneumococcal Vaccination No Allergies/Adverse Reactions: Allergies acetaminophen [From Vicodin] Allergy (Verified 08/05/17 12:52) Other chest pain codeine Allergy (Verified 08/05/17 12:52) hydrocodone [From Vicodin] Allergy (Verified 08/05/17 12:52) Other chest pain Home Medications: HOME MEDICATIONS HYDROmorphone HCL [Dilaudid] 2 mg PO QID PRN 08/05/17 [Last Taken Unknown] Sulfamethoxazole/Trimethoprim [Bactrim Ds] 1 tab PO BID #6 tab 08/08/17 [Last Taken Unknown] - History of Present Illness Narrative: Patient's care turned over to me. She was worked up by the Abdirahman Whitlock [employer], work up is essentially mostly the same as the last visit. She was given Dilaudid here, and her pain has improved. She is now resting comfortably. Her heart rate is in the 130's, her blood pressure is 80's-90's systolic, which is normal for her per the daughter. Patient is terminally ill, with an inoperable cancer. She had an incident in Radiology where she was unable to stand, and was having a difficult time breathing, that has resolved. - Patient's Past Medical History Patient History - Medical: Anemia, Cataracts, Chronic Pain, Diabetes Type 2, Depression, Hypothyroidism, Other Patient History - Cardiac/Respiratory: Cardiomyopathy, Coronary Heart Disease, CVA/Stroke, Deep Vein Thrombosis, Hypertension Patient History - Cancer: Pancreatic Patient History - Surgical Procedures: Cataracts, Cholecystectomy, Colonoscopy, D & C, Gastric Bypass, T & A, Other Patient History - Other: None - Social History Living Situations: home Abuse History: No History of abuse Psych History: Hx of Depression Smoking Status: Former smoker Have you smoked in the past 12 months: No Do you dip or chew tobacco: No - Immunizations Immunizations Up to Date: Yes Hx Pneumococcal Vaccination: No History of Influenza Vaccine: No Physical Exam - Physical Exam General Appearance: Present: alert, no apparent distress Head Exam: Present: normal inspection, no evidence of injury Eye Exam: Normal inspection: bilateral, EOMI: bilateral Ears, Nose, Throat: Present: normal ENT inspection, normal pharynx Respiratory: Present: no respiratory distress, normal breath sounds, no accessory muscle use ED Progress - Results and Orders Patient's Lab Results:: I have reviewed the patient's lab results. Results and Orders: Laboratory Tests 08/14/17 08/14/17 08/14/17 19:47 20:00 20:00 WBC 8.6 RBC 2.73 L Hgb 8.5 L Hct 25.5 L MCV 93.4 MCH 31.1 H MCHC 33.3 RDW 22.2 H Plt Count 95 L MPV 10.6 H Immature Gran % (Auto) 1.90 H Immature Gran # (Auto) 0.16 H Neutrophils % 93.6 H Lymphocytes % 2.8 L Monocytes % 1.6 Eosinophils % 0.0 Basophils % 0.1 Nucleated RBC % 0.0 Neutrophils # 8.1 H Lymphocytes # 0.2 L Monocytes # 0.1 Eosinophils # 0.0 Absolute Basophils 0.0 PT 15.8 H INR (Anticoag Therapy) 1.52 H Sodium 138 Plasma Sodium 139 Potassium 4.3 Chloride 102 Carbon Dioxide 19.7 L Anion Gap 20.6 H BUN 8 Creatinine 0.81 Est GFR (Non-Af Amer) 75 D BUN/Creatinine Ratio 9.9 Random Glucose 143 H Calcium 7.0 L Calcium Adj for Albumin 8.9 Total Bilirubin 1.3 H AST 223 H ALT 136 H Alkaline Phosphatase 309 H Ammonia B-Natriuretic Peptide Total Protein 4.6 L Albumin 1.2 L Urine Color Urine Appearance Urine pH Ur Specific [place] Urine Protein Urine Glucose (UA) Urine Ketones Urine Blood Urine Nitrate Urine Bilirubin Urine Ictotest Prot Sulfosalicylic Acd Urine Urobilinogen Ur Leukocyte Esterase Urine RBC Urine WBC Ur Epithelial Cells Urine Bacteria Urine Culture Comments 08/14/17 08/14/17 08/14/17 20:00 21:08 22:30 WBC RBC Hgb Hct MCV MCH MCHC RDW Plt Count MPV Immature Gran % (Auto) Immature Gran # (Auto) Neutrophils % Lymphocytes % Monocytes % Eosinophils % Basophils % Nucleated RBC % Neutrophils # Lymphocytes # Monocytes # Eosinophils # Absolute Basophils PT INR (Anticoag Therapy) Sodium Plasma Sodium Potassium Chloride Carbon Dioxide Anion Gap BUN Creatinine Est GFR (Non-Af Amer) BUN/Creatinine Ratio Random Glucose Calcium Calcium Adj for Albumin Total Bilirubin AST ALT Alkaline Phosphatase Ammonia 17.0 B-Natriuretic Peptide 3846 H Total Protein Albumin Urine Color [place] Urine Appearance Clear Urine pH 6.0 Ur Specific [place] 1.025 Urine Protein 30 H Urine Glucose (UA) Negative Urine Ketones Negative Urine Blood 250 H Urine Nitrate Negative Urine Bilirubin 3 H Urine Ictotest Positive H Prot Sulfosalicylic Acd 1+ Urine Urobilinogen Normal Ur Leukocyte Esterase Negative Urine RBC >50 H Urine WBC 0-5 Ur Epithelial Cells 0-5 Urine Bacteria None seen Urine Culture Comments No culture indicated - Vital Signs Vital Signs: Vital Signs 08/14/17 08/14/17 08/14/17 19:14 19:26 20:44 Temperature 36.8 C 36.8 C Pulse Rate 134 H 130 H Respiratory 14 14 22 H Rate Blood Pressure 92/68 92/68 117/60 O2 Sat by Pulse 94 95 Oximetry 08/14/17 08/14/17 08/14/17 21:32 21:54 21:57 Temperature Pulse Rate 140 H 144 H Respiratory 22 H 12 Rate Blood Pressure 104/53 124/68 O2 Sat by Pulse 100 69 L 100 Oximetry - Progress/Reassessment Chief Complaint: Abdominal Pain Progress:: Improved Progress Note-Subjective: 08/15/17 03:53 We tried taking the patient to her car, via wheelchair, but patient developed shortness of breath again, similar to when she was in x-ray. I just spoke with the Hospitalist Clarice, she agreed to accept the patient for an observation admission after we discussed the patient's presentation, labs, x-rays and current appearance. 08/15/17 05:29 Patient's troponin came back negative, she is headed to the floor now. Plan - Plan Plan: Patient doing better, able to speak more and make her needs known. Her heart rate is still tachy, but she is conversing with us. Her daughter is with her, and spends most of her time with her mom. Her respiratory rate is down, and we appear to be doing a better job controlling her pain. The cot is not comfortable , the patient is having back pain from laying on her back. She normally spends a lot of time in her bed. Patient here initially for pain control, she has not been taking her pain meds as needed. Will disharge to home with her daughter. Daughter and I conversed at length about her mom, the daugher notes that the patient usually has a blood pressure under 100 systolic. She states she is comfortable taking her mom home, and seeing if she does better at home. I have advised the daughter to bring her mom back right away if she realizes that she isn't relaxing at home like normal. 05:31. Patient did not tolerate going to the vehicle, was unable to breathe well while standing and getting into the vehicle. She is being admitted for observation here at [facility]. Departure Clinical Impression: Tachycardia, Dyspnea on exertion Pancreatic cancer Qualifiers: Pancreatic malignancy location: unspecified Qualified Code(s): C25.9 - Malignant neoplasm of pancreas, unspecified Abdominal pain Qualifiers: Abdominal location: lower abdomen, unspecified Qualified Code(s): R10.30 - Lower abdominal pain, unspecified - Departure Disposition: [facility] Condition: Fair
[2017-08-15] MEDS ORDERED: HYDROmorphone HCL 2 MG TABLET PO ONE (01:32)
[2017-08-15] MEDS ORDERED: HYDROmorphone HCL 1 MG/ML DISP.SYRIN IV ONE (01:32)
[2017-08-15] MEDS ORDERED: HYDROmorphone HCL 2 MG TABLET ONE (01:34)
[2017-08-15] MEDS ORDERED: HYDROmorphone HCL 1 MG/ML DISP.SYRIN ONE (01:34)
--- NOTE | 2017-08-15 06:21 | HP ---
Chief Complaint - Chief Complaint Date of Service: 08/15/17 Time of Service: 06:15 Chief Complaint: abdominal pain History of Present Illness: Pt is a 67 year old female with PMH significant for pancreatic CA, GIB (05/2017) , CVA, HTN, HLD, deep arterial thrombus (coumadin dc'd 05/2017 d/t high risk), CAD, DMII, and takotsubo cardiomyopathy. She is currently undergoing chemotherapy at [facility], last treatment about 3 weeks ago. She is prescribed 2mg PO Dilaudid every 6 hours as needed, but her family reports she usually only takes it 2 or 3 times a day. She complains of upper quadrant abdominal pain, worse upon standing which is associated with tachycardia and SOB. Nothing makes the pain better, it has progressively gotten worse, pt is poor historian although alert and oriented. During stay in the ER her SBP ranged from 80's-100' s per EMR daughter reports this is her baseline, although she is not present at this time for further details. She was given multiple doses of dilaudid in the ER without relief of symptoms. In xray it was noted she had worsening of pain, SOB, and had a one time pulse ox reading of 69%, although since has remained >90 % on RA. Abdominal and chest xray did not show any acute findings. UA on admission with >50 RBC, 250 blood, and 30 of protein-pt denies flank pain or dysuria, there is no evidence of infection. Pt was dc'd from ER with daughter as they felt she would do better at home, however pt could not get into their personal vehicle due to uncontrolled pain. She will be admitted to observation for pain control, hemodynamic monitoring, and slow hydration. Of note she was hospitalized from 08/06/17 to 08/08/17 for hypokalemia, Klebsiella UTI, and weakness, has since completed course of Bactrim. 08/08 following her dc she was evaluated at [facility] ED for fever, no changes were made in plan of care. Abdominal CT on 08/11 showed no progression of her cancer but mildly worsening ascites. On 08/08/2017 laboratory values were as followed: AST 21, ALT 30, Alk phos 174. Laboratory findings today are listed below. Laboratory Tests 08/14/17 08/14/17 08/14/17 19:47 20:00 20:00 WBC 8.6 Hgb 8.5 L Hct 25.5 L Plt Count 95 L PT 15.8 H INR (Anticoag Therapy) 1.52 H Sodium 138 Potassium 4.3 Chloride 102 Carbon Dioxide 19.7 L Anion Gap 20.6 H BUN 8 Creatinine 0.81 Random Glucose 143 H Total Bilirubin 1.3 H AST 223 H ALT 136 H Alkaline Phosphatase 309 H Ammonia Troponin I B-Natriuretic Peptide 08/14/17 08/14/17 08/15/17 20:00 22:30 04:01 WBC Hgb Hct Plt Count PT INR (Anticoag Therapy) Sodium Potassium Chloride Carbon Dioxide Anion Gap BUN Creatinine Random Glucose Total Bilirubin AST ALT Alkaline Phosphatase Ammonia 17.0 Troponin I 0.036 B-Natriuretic Peptide 3846 H - Patient's Past Medical History Patient History - Medical: Anemia, Cataracts, Chronic Pain, Diabetes Type 2, Depression, Hypothyroidism, Other Patient History - Cardiac/Respiratory: Cardiomyopathy, Coronary Heart Disease, CVA/Stroke, Deep Vein Thrombosis, Hypertension Patient History - Cancer: Pancreatic Patient History - Surgical Procedures: Cataracts, Cholecystectomy, Colonoscopy, D & C, Gastric Bypass, T & A, Other Patient History - Other: Immunosuppresive Tx >3mo - Family History Mother Family History - Medical: Father Family History - Medical: - Social History Living Situations: home Abuse History: No History of abuse Psych History: Hx of Depression Smoking Status: Former smoker Have you smoked in the past 12 months: No Do you dip or chew tobacco: No Alcohol Use: none Drug Use: none - Immunizations Immunizations Up to Date: Yes Hx Pneumococcal Vaccination: No History of Influenza Vaccine: No Review Of Systems (GEN) - Review of Systems Generalized/Overall Review: Present: Weakness, Weight loss EENTM: Present: No Symptoms Reported Respiratory: Present: Shortness of Breath, Orthopnea Cardiac: Present: Edema, Syncope Abdominal: Present: Abdominal Pain Genitourinary: Present: No Symptoms Reported Musculoskeletal: Present: No Symptoms Reported Neurological: Present: No Symptoms Reported Skin: Present: No Symptoms Reported Endocrine: Present: No Symptoms Reported Immunizations: IMMUNIZATION HX Immunizations Up to Date Yes History of Influenza Vaccine No Hx Pneumococcal Vaccination No Allergies/Adverse Reactions: Allergies Allergy/AdvReac Type Severity Reaction Status Date / Time acetaminophen [From Vicodin] Allergy Other Verified 08/15/17 06:28 codeine Allergy Verified 08/15/17 06:28 hydrocodone [From Vicodin] Allergy Other Verified 08/15/17 06:28 Home Medications: HOME MEDICATIONS HYDROmorphone HCL [Dilaudid] 2 mg PO QID PRN 08/05/17 [Last Taken 08/14/17 16:00 ] Sulfamethoxazole/Trimethoprim [Bactrim Ds] 1 tab PO BID #6 tab 08/08/17 [Last Taken 08/14/17 16:00] Exam - Exam Vital Signs: Vital Signs - Last Taken Temp 36.8 C 08/15/17 05:49 Pulse 130 H 08/15/17 05:49 Resp 14 08/15/17 05:49 BP 106/51 08/15/17 05:49 Pulse Ox 94 08/15/17 05:49 Constitutional: Present: Alert, Oriented x3, Cooperative, Mild distress ENT Exam: Present: normal ENT inspection, hearing grossly normal, TMs normal Eye Exam: bilateral eye: normal inspection, PERRL Back Exam: Present: normal inspection, no CVA tenderness, no vertebral tenderness Respiratory: Present: chest non-tender, lungs clear, normal breath sounds, no respiratory distress, no accessory muscle use Cardiovascular/Chest: Present: normal peripheral pulses, no chest tenderness, no gallop, no JVD, no murmur, tachycardia Peripheral Pulses: dorsalis-pedis (R): 2+, dorsalis-pedis (L): 2+, radial (R): 2 +, radial (L): 2+ Abdomen: Present: Normal bowel sounds, soft, nondistended, no rebound tenderness , no hepatospenomegaly, no masses, tender - upper quaderants Extremity: Present: normal range of motion, non-tender, normal inspection, no calf tenderness, pedal edema Skin Exam: Present: cool/dry, pallor Lymphatic: Present: no adenopathy Neurologic: Present: no motor/sensory deficits, alert, normal mood/affect, oriented x 3 Appearance: Present: appropriate appearance, appropriate insight, neat Eye contact: Present: cooperative, good eye contact, normal speech Thoughts: Present: normal thought pattern, no apparent hallucination Diagnostic Studies: Laboratory Results Laboratory Tests 08/14/17 08/14/17 08/14/17 19:47 20:00 20:00 WBC 8.6 Hgb 8.5 L Hct 25.5 L Plt Count 95 L PT 15.8 H INR (Anticoag Therapy) 1.52 H Sodium 138 Potassium 4.3 Chloride 102 Carbon Dioxide 19.7 L Anion Gap 20.6 H BUN 8 Creatinine 0.81 Random Glucose 143 H Total Bilirubin 1.3 H AST 223 H ALT 136 H Alkaline Phosphatase 309 H Troponin I B-Natriuretic Peptide Total Protein 4.6 L Albumin 1.2 L Urine Protein Urine Blood Urine Bilirubin Urine Ictotest Urine RBC 08/14/17 08/14/17 08/15/17 20:00 21:08 04:01 WBC Hgb Hct Plt Count PT INR (Anticoag Therapy) Sodium Potassium Chloride Carbon Dioxide Anion Gap BUN Creatinine Random Glucose Total Bilirubin AST ALT Alkaline Phosphatase Troponin I 0.036 B-Natriuretic Peptide 3846 H Total Protein Albumin Urine Protein 30 H Urine Blood 250 H Urine Bilirubin 3 H Urine Ictotest Positive H Urine RBC >50 H Assessment/Plan - Assessment/Plan (1) Dyspnea on exertion Assessment: Pt pulse ox has remained >90% on RA except for as mention previously questionable record of 69%. Differential dx include: pain related SOB, pleural effusion, PE, and anemia. Pt has history of deep arterial thrombus and CVA, however Coumadin was dc'd in May of this year d/t high risk. Will need to discuss with her daughter goals of care and how aggressive she would like to be with treatments. Once this is clarified can consider chest CT per PE protocol and blood transfusion. Problem: Acute (2) Tachycardia Assessment: Same as above. Need to discuss goals of care with daughter; following can consider CT per PE protocol, blood transfusion if remains anemic following NS bolus, and echo to further evaluate cardiology etiology. Problem: Acute (3) Pancreatic cancer Assessment: Currently receiving care at [facility], last chemo treatment was about 3 weeks ago. Most recent abdominal CT showing fullness in head of pancreas, stable to slightly less pronounced. Increase in nonspecific ascities. Problem: Chronic Qualifiers: Pancreatic malignancy location: unspecified Qualified Code(s): C25.9 - Malignant neoplasm of pancreas, unspecified (4) Diabetes mellitus type 2 in nonobese Assessment: Awaiting med rec. Will confirm once updated, start consistent carb diet and accu checks ac. Problem: Chronic (5) Hypothyroidism Problem: Chronic
[2017-08-15] MEDS ORDERED: HYDROmorphone HCL 2 MG TABLET PO PRN ×4 (06:57→17:47)
[2017-08-15] MEDS ORDERED: NORMAL SALINE 500 ML IV ONE (06:59)
[2017-08-15] MEDS ORDERED: SENNOSIDES/DOCUSATE SODIUM 1 TAB TABLET PO SCH (07:00)
[2017-08-15] MEDS ORDERED: fentaNYL 12 MCG PATCH.TD72 TD SCH (08:00)
[2017-08-15] MEDS ORDERED: fentaNYL 12 MCG PATCH.TD72 TD ONE (12:15)
[2017-08-15] MEDS ORDERED: DIATRIZOATE MEGLUMINE, SODIUM 30 ML BTL PO ONE ×2 (13:33→20:26)
[2017-08-15] MEDS ORDERED: NALOXONE HCL 1 MG/1 ML SYRG ONE (15:06)
[2017-08-15] MEDS ORDERED: NALOXONE HCL 1 MG/1 ML SYRG IV ONE (15:08)
[2017-08-15 18:04] LABS: Hematocrit 24.4 % (37.0-47.0); Mean Cell Volume 96.4 fl (78-100); Mean Corpuscular Hemoglobin 31.6 pg (27-31); Mean Corpuscular Hgb Conc 32.8 g/dl (32-36); Mean Platelet Volume 11.9 fl (6.0-9.5); Platelet Count 51 K/mm3 (150-450); Red Blood Count 2.53 M/mm3 (4.2-5.4)
[2017-08-15 18:18] LABS: Albumin * 1.1 gm/dl (3.4-5.0); Anion Gap 24.4 mmol/L (6.8-13.8); BUN/Creatinine Ratio 8.5 (9.0-21.6); Ca. Corrected For Albumin 8.9 mg/dL (8.4-10.2); Calcium * 6.9 mg/dL (7.9-10.9); Carbon Dioxide 14.2 mmol/L (24-32.6); Potassium 4.6 mmol/L (3.4-4.6); Total Protein 4.2 gm/dL (6.2-8.2)
[2017-08-15] MEDS ORDERED: NORMAL SALINE 1,000 ML IV ONE ×2 (18:36→20:37)
[2017-08-15] MEDS ORDERED: NORMAL SALINE 1,000 ML IV PRN (18:38)
[2017-08-15 19:53] LABS: Immature Granulocyte 2 (0-1); Lymphocyte 28 % (20-51); Monocyte 8 % (0-9); Neutrophil 62 % (42-75); Neutrophil # 0.3 K/mm3 (1.3-6.0); Total Cells Counted 50
[2017-08-15 19:56] LABS: Macrocytosis 1+; Toxic Granulation 1+
[2017-08-15 19:57] LABS: Platelet Estimate Decreased (NORMAL); RBC Morphology Normal (NORMAL)
[2017-08-15] MEDS ORDERED: PIPERACILLIN SODIUM/TAZOBACTAM 3.375 GM in DEXTROSE 5 % IN WATER 100 ML IV SCH ×2 (21:00)
[2017-08-15] MEDS ORDERED: SACCHAROMYCES BOULARDII 250 MG CAPSULE PO SCH (21:00)
[2017-08-15 21:06] LABS: Urine Bilirubin 3 mg/dl (NEGATIVE); Urine Blood 250 /ul (NEGATIVE); Urine Ketone Negative (NEGATIVE); Urine Protein 30 mg/dL (NEGATIVE); Urine Specific Gravity 1.025 SP.GR. (1.005-1.010); Urine Urobilinogen Normal (NORMAL); Urine pH 6.5 pH (5.0-7.0)
[2017-08-15 21:24] LABS: Urine Appearance Cloudy; Urine Color Brown; Urine Nitrite Positive (NEGATIVE); Urine WBC None Seen /hpf (0-5)
[2017-08-15 21:25] LABS: Urine Amorphous Sediment Few - 1+ (NONE-FEW); Urine Bacteria 2+; Urine RBC >50 /hpf (0-5)
[2017-08-15] MEDS ORDERED: VANCOMYCIN HCL 1 GM in DEXTROSE 5 % IN WATER 250 ML IV SCH ×2 (22:00)
[2017-08-15 22:50] VITALS: BP 70/44
--- NOTE | 2017-08-15 23:08 | PN ---
Subjective - Date and Time Seen Date: 08/15/17 Time: 21:25 Subjective Narrative: Rapid response team was called to the patients room at approx 21:20. As the ED physician I responded immediately followed by 2 ED nurses. We found the patient lying supine in the bed with agonal respirations. Pt vomited some brownish liquid, as nursing was placing a NRB mask to the patient. Pt was rolled to the right and suction was called for. Pt was pale and unresponsive to any stimuli. Nurse caring for the patient explained that the patient is a DNR and the family and physician were discussing palliative care as the patient had pancreatic cancer and had a recent pancreatic duct obstruction that was cleared and stent placed. BP on the monitor was approx 114 over 100. I asked if another BP could be taken and attempt was made by nursing. Nurse caring for the patient stated that she had just had a 2.5 L sepsis bolus as her lactic acid had come back over 10. I asked if another fluid bolus could be started but as I did another nurse stated that the patient was apneic. Automatic BP cuff was unable to get a BP. I checked a radial pulse and found a slow (30-40 bpm) very weak pulse that became slower and more weak and disappeared over 30- 40 seconds. Nurse caring for the patient confirmed to me that the patient was DNR. I checked another pulse, listened to chest sounds and found no pulse or cardiac sounds. Pt remained unresponsive to any stimuli. The nurses station was called and they showed asystole on telemetry. Time of was called at 21:27. Objective - Vitals Vitals: Last Vital Signs Temp 37.1 C 08/15/17 18:00 Pulse 96 08/15/17 20:45 Resp 24 H 08/15/17 21:00 BP 70/44 08/15/17 21:00 Pulse Ox 90 08/15/17 20:45 - Abnormal Lab Findings Abnormal Lab Findings: Abnormal Lab Results 08/15/17 Range/Units 20:51 Urine Protein 30 H (NEGATIVE) mg/dL Urine Blood 250 H (NEGATIVE) /ul Urine Nitrate Positive H (NEGATIVE) Urine Bilirubin 3 H (NEGATIVE) mg/dl Urine Ictotest Positive H (NEGATIVE) Urine RBC >50 H (0-5) /hpf Urine Bacteria 2+ H (NONE) Hyaline Casts 10-25 H (NONE) /LPF - Exam Exam Narrative: See above. Assessment/Plan - Problems/Diagnosis (1) Cardiopulmonary arrest Problem: Acute (2) GI bleed Problem: Acute Qualifiers: GI bleed type/associated pathology: unspecified gastrointestinal hemorrhage type Qualified Code(s): K92.2 - Gastrointestinal hemorrhage, unspecified
--- NOTE | 2017-08-16 07:23 | DS ---
Discharge Summary - Provider Primary Care Provider: Cosmo Muller Admitting Clinician: Clarice Parker Attending Physician on Admission: Cosmo Muller Pronouncing Clinician: Myles Gamino - Diagnosis/Cause of (1) Dyspnea on exertion Problems: Acute (2) Tachycardia Problems: Acute (3) Pancreatic cancer Problems: Chronic (4) Diabetes mellitus type 2 in nonobese Problems: Chronic (5) Hypothyroidism Problems: Chronic - Summary Details (narrative): Pt was admitted the morning of 08/15/17 with hypotension, abdominal pain, and SOB, with known pancreatic cancer. Through the day pt continued to experience abdominal pain, pain medications were adjusted as needed. Around 1430 pt had an unresponsive episode with hypotension, she regained consciousness within about 5 minutes and returned to baseline. During the rest of the day blood pressure remained tenuous, she received multiple fluid boluses with minimal effect. At [address] was ordered, pt began to drink barium and per nurse when she went back in pt was found unresponsive once again. Rapid response was called. Myself and ER MD were at bedside. Pt was in asystole with agonal breathing, experienced one episode of emesis. She was a DNR therefore no code was activated , pt at 2126. Family, Emily, and medical van driver were notified. 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
[2017-08-18] MEDS ORDERED: fentaNYL 25 MCG PATCH.TD72 TD SCH (10:00)
== END 2017-08-15 21:27 | disposition expired | DRG 948 ==
LOC: ER 19:04 → MS 08-15 05:21 → OBSVTOIN 08-15 20:30
PROVIDERS: ADMIT Nurse Practitioner Gerontology; ATTEND Family Medicine
DX: G89.3 Neoplasm related pain (acute) (chronic) (principal); C25.9 Malignant neoplasm of pancreas, unspecified; I42.9 Cardiomyopathy, unspecified; K92.2 Gastrointestinal hemorrhage, unspecified; R00.0 Tachycardia, unspecified; I95.9 Hypotension, unspecified; E11.9 Type 2 diabetes mellitus without complications; I10 Essential (primary) hypertension; E78.5 Hyperlipidemia, unspecified; E03.9 Hypothyroidism, unspecified; I25.10 Atherosclerotic heart disease of native coronary artery without angina pectoris; Z86.718 Personal history of other venous thrombosis and embolism; Z98.84 Bariatric surgery status; Z79.899 Other long term (current) drug therapy
CPT/HCPCS: 36415; 71010; 74000; 80053; 81001; 82140; 83605; 83880; 84145; 84484; 85007; 85025; 85610; 87040; 87077; 87086; 87186; 96374; 96375; 99285; J2405